=== PATIENT | female | born 1945 | race Caucasian/White ===

== ENCOUNTER 2020-02-26 12:49 | Inpatient (IN) | payer MEDICARE ==
[2020-02-26 16:01] VITALS: BMI 4413.9
--- NOTE | 2020-02-26 17:05 | RAD ---
PORTABLE CHEST ONE VIEW: 02/26/20 at 4:52 p.m. HISTORY: Chest pain. FINDINGS: The heart size is borderline. The aorta is tortuous. The lungs are expanded without focal areas of co nsolidation, pneumothoraces, irene pulmonary edema or pleural effusions. An electronic device is seen in the upper chest. There are degenerative changes in the spine. IMPRESSION: No acute process. POS: [place]
[2020-02-26] MEDS ORDERED: Aspirin 325 mg Enteric Coated Tablet PO SCH (17:15)
[2020-02-26] MEDS ORDERED: Nitroglycerin 0.4 MG TAB (25 Tab Bottle) SL PRN (17:15)
[2020-02-26] MEDS ORDERED: Milk Of Magnesia 30 ML UDCUP PO PRN (17:16)
[2020-02-26] MEDS ORDERED: Acetaminophen 325 MG TAB PO PRN (17:16)
[2020-02-26] MEDS ORDERED: Zolpidem Tartrate 5 MG TAB PO PRN (17:16)
[2020-02-26 17:17] LABS: #Basophils 0.1 thou/uL (0.0-0.2); #Eosinphils 0.1 thou/uL (0.0-0.7); #Lymphocytes 1.4 thou/uL (1.20-3.40); #Monocytes 0.6 thou/uL (0.11-0.59); #Neutrophils 4.9 thou/uL (1.40-6.50); %Basophils 0.8 % (0.0-1.0); %Eosinophils 1.9 % (0.0-10.0); %Lymphocytes 20.2 % (21.0-51.0); %Monocytes 8.8 % (0.0-10.0); %Neutrophils 68.3 % (42.0-75.0); Hemoglobin 14.5 g/dL (12.0-16.0); Mean Corpuscular HGB CONC 33.3 g/dL (32.0-36.0); Mean Corpuscular Hemoglobin 30.7 pg (27.0-31.0); Mean Corpuscular Volume 92.4 fL (78.0-98.0); Mean Platelet Volume 11.9 fL (7.4-10.4); Platelet Count 150 thou/uL (130-400); RBC Distribution Width 12.4 % (11.5-14.5); Red Blood Cell (RBC) Count 4.71 mill/uL (4.20-5.40); White Blood Cell (WBC) Count 7.1 thou/uL (4.8-10.8)
[2020-02-26 17:26] LABS: PTT 27.1 sec (22.9-36.1); Prothrombin Time 13.5 sec (12.0-14.7)
[2020-02-26 17:43] LABS: Anion Gap 11 mmol/L (10-20); BUN (Urea Nitrogen) 14 mg/dL (9.8-20.1); CK (CPK) 103 U/L (29-168); Calc. Creatinine Clearance 52 mL/min (70-130); Calcium 9.7 mg/dL (7.8-10.44); Carbon Dioxide 27 mmol/L (23-31); Cardiac Risk 2.6 (Less than 4.5); Chloride 110 mmol/L (98-107); Cholesterol 129 mg/dl (< 200 Desired); Estimated GFR-MDRD 50; Glucose 93 mg/dL (83-110); HDL Cholesterol 49 mg/dL (>60 Neg Risk); LDL Cholesterol, Calculated 66 mg/dL; Sodium 144 mmol/L (136-145); Triglycerides 68 mg/dL (Less than 150)
[2020-02-26 18:11] LABS: Bilirubin Negative (Negative); Blood, Urine Negative (Negative); Clarity Clear (Clear); Glucose, Urine (Dipstick) Normal (Negative); Leukocyte Negative Leu/uL (Negative); Nitrite Negative (Negative); Protein, Urine (Dipstick) Negative (Neg-Trace); Urobilinogen Normal mg/dL (Less than 2)
[2020-02-26] MEDS ORDERED: Carvedilol 3.125 MG TAB PO SCH ×2 (18:30→20:00)
[2020-02-26 19:03] LABS: Free T4 (Free Thyroxine) 1.28 ng/dL (0.70-1.48)
[2020-02-26] MEDS: Docusate 100 MG CAP PO SCH (21:05)
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
[2020-02-27] MEDS: Levothyroxine Sodium 75 MCG TAB PO SCH (05:30)
[2020-02-27] MEDS ORDERED: Heparin 10,000 UNITS/1 ML VIAL ONE (06:34)
[2020-02-27] MEDS: Carvedilol 3.125 MG TAB PO SCH ×2 (06:40→17:58)
[2020-02-27] MEDS ORDERED: Fentanyl 100 MCG/2 ML VIAL ONE (06:59)
[2020-02-27] MEDS ORDERED: Midazolam HCl 2 mg/2 ml Vial ONE (06:59)
[2020-02-27] MEDS ORDERED: Protamine Sulfate 50 MG/5 ML VIAL ONE (07:25)
[2020-02-27] MEDS ORDERED: Nitroglycerin 0.4 MG TAB (25 Tab Bottle) SL PRN (07:43)
[2020-02-27] MEDS ORDERED: Acetaminophen/Codeine 30-300mg Tablet PO PRN ×2 (07:43)
[2020-02-27] MEDS ORDERED: Sodium Chloride 0.9% 200 ML IV PRN (07:43)
[2020-02-27] MEDS ORDERED: Sodium Chloride 0.9% 1,000 ML IV SCH (07:45)
[2020-02-27] MEDS ORDERED: Spironolactone 25 MG TAB PO SCH (08:15)
[2020-02-27] MEDS ORDERED: Aspirin 325 mg Enteric Coated Tablet PO SCH (09:00)
[2020-02-27] MEDS: Furosemide 20 MG TAB PO SCH (09:22)
[2020-02-27] MEDS: Docusate 100 MG CAP PO SCH ×2 (09:23→20:41)
[2020-02-27] MEDS ORDERED: Iopamidol 370 76% 100 ML VIAL ONE (09:47)
[2020-02-27] MEDS ORDERED: Iopamidol 370 76% 50 ML VIAL FS ONE (09:47)
[2020-02-27] MEDS: Aspirin 81 mg Enteric Coated Tablet PO SCH (12:09)
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
[2020-02-27] MEDS ORDERED: Prevnar 13-Val Conj/PF 0.5 ML SYRINGE IM ONE (17:15)
[2020-02-28 04:40] LABS: Anion Gap 14 mmol/L (10-20); BUN (Urea Nitrogen) 15 mg/dL (9.8-20.1); Calc. Creatinine Clearance 51 mL/min (70-130); Calcium 8.9 mg/dL (7.8-10.44); Carbon Dioxide 20 mmol/L (23-31); Chloride 110 mmol/L (98-107); Estimated GFR-MDRD 48; Glucose 91 mg/dL (83-110); Sodium 140 mmol/L (136-145)
[2020-02-28] MEDS: Levothyroxine Sodium 75 MCG TAB PO SCH (06:09)
[2020-02-28] MEDS ORDERED: Spironolactone 25 MG TAB PO SCH (08:00)
[2020-02-28] MEDS: Aspirin 81 mg Enteric Coated Tablet PO SCH (08:28)
[2020-02-28] MEDS: Carvedilol 3.125 MG TAB PO SCH (08:28)
[2020-02-28] MEDS: Docusate 100 MG CAP PO SCH (08:28)
[2020-02-28] MEDS: Furosemide 20 MG TAB PO SCH (08:28)
--- NOTE | 2020-02-28 08:33 | EKG ---
Test Reason : ON ARRIVAL Blood Pressure : / mmHG Vent. Rate : 073 BPM Atrial Rate : 073 BPM P-R Int : 166 ms QRS Dur : 084 ms QT Int : 426 ms P-R-T Axes : 034 006 043 degrees QTc Int : 469 ms Sinus rhythm with occasional Premature ventricular complexes Otherwise normal ECG No previous ECGs available Confirmed by DR. Andres RAMIREZ ([id number]) on 02/28/2020 8:33:13 AM Referred By: YESSENIA Confirmed By:DR. Andres RAMIREZ
[2020-02-28 09:10] VITALS: BP 126/66; TEMP 98.4
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
[2020-02-28] MEDS ORDERED: Atorvastatin Calcium 40 MG TAB PO SCH (21:00)
[2020-02-28] MEDS ORDERED: Atorvastatin Calcium 10 MG TAB PO SCH (21:00)
[2020-02-28] MEDS ORDERED: Pravastatin Sodium 40 MG TAB PO SCH (21:00)
== END 2020-02-28 12:38 | disposition home or self-care (01) | DRG 287 ==
LOC: 2NO 15:30
PROVIDERS: ADMIT Internal Medicine Cardiovascular Disease; ATTEND Internal Medicine Cardiovascular Disease
PROC: 4A023N7 Measurement of Cardiac Sampling and Pressure, Left Heart, Percutaneous Approach (ICD-10-PCS; principal; 2020-02-27)
PROC: 3E02340 Introduction of Influenza Vaccine into Muscle, Percutaneous Approach (ICD-10-PCS; 2020-02-27)
PROC: B2111ZZ Fluoroscopy of Multiple Coronary Arteries using Low Osmolar Contrast (ICD-10-PCS; 2020-02-27)
PROC: B2151ZZ Fluoroscopy of Left Heart using Low Osmolar Contrast (ICD-10-PCS; 2020-02-27)
PROC: 4A033BC Measurement of Arterial Pressure, Coronary, Percutaneous Approach (ICD-10-PCS; 2020-02-27)
DX: I47.2 Ventricular tachycardia (principal); I42.8 Other cardiomyopathies; E78.5 Hyperlipidemia, unspecified; Z23 Encounter for immunization; E03.9 Hypothyroidism, unspecified; I08.3 Combined rheumatic disorders of mitral, aortic and tricuspid valves; E78.00 Pure hypercholesterolemia, unspecified; I49.3 Ventricular premature depolarization; Z79.82 Long term (current) use of aspirin; Z79.899 Other long term (current) drug therapy; Z90.710 Acquired absence of both cervix and uterus
CPT/HCPCS: 36415; 71045; 80048; 80061; 81003; 82550; 83615; 84439; 84443; 84481; 85025; 85347; 85610; 85730; 93005; 93010; 93798; 94760; J1644; J2250; J2720; J3010; Q9967